=== PATIENT | male | born 1955 | race Caucasian/White ===

== ENCOUNTER 2018-11-23 06:11 | Day surgery (SDC) | payer BC ==
[~2018-11-23] VITALS: Ht 185.4 cm; Wt 106.0 kg
[~2018-11-23 06:11] MED LIST: Aspir 8181 MG PO; Diclofenac Pota50 MG PO; EPIPEN0.3 MG/0.3; IBUP800 PO; LOPROX 0.77% TOP; Olux-E 0.05% F100 GM TOP; TRAM50 PO; TRAZ50 PO; [UNRECOGNIZED DRUG - OTHER] TOP
[2018-11-23] MEDS ORDERED: METF500C PO (07:27)
--- NOTE | 2018-11-23 10:26 | NUR ---
11/23/18 1026 Navi Leos S PATIENT SITTING IN RECLINER CHAIR VISITING WITH AND DAUGHTER. DENIES PAIN, N/V AT THIS TIME.VSS
== END 2018-11-23 11:08 | disposition home or self-care (01) ==
LOC: ORSCSDS 06:11
PROVIDERS: Orthopaedic Surgery
PROC: 0RNK4ZZ Release Left Shoulder Joint, Percutaneous Endoscopic Approach (ICD-10-PCS; principal; 2018-11-23 07:30)
PROC: 0LM24ZZ Reattachment of Left Shoulder Tendon, Percutaneous Endoscopic Approach (ICD-10-PCS; principal; 2018-11-23 07:30)
DX: M75.122 Complete rotator cuff tear or rupture of left shoulder, not specified as traumatic (principal); M75.42 Impingement syndrome of left shoulder; G47.33 Obstructive sleep apnea (adult) (pediatric); Z79.899 Other long term (current) drug therapy; Z88.2 Allergy status to sulfonamides; Z91.030 Bee allergy status; Z87.891 Personal history of nicotine dependence
CPT/HCPCS: 82947; C1713; J0171; J0690; J1100; J1885; J2405; J2795; J3010; J7120

== ENCOUNTER 2019-12-24 11:14 | Emergency (ER) | payer BC ==
[~2019-12-24] VITALS: Ht 185.4 cm; Wt 94.3 kg
[~2019-12-24 11:14] MED LIST changes: +METF500C PO
== END 2019-12-24 12:45 | disposition short-term general hospital (02) ==
LOC: ER 11:14
DX: H53.2 Diplopia (principal); H02.409 Unspecified ptosis of unspecified eyelid; R29.898 Other symptoms and signs involving the musculoskeletal system; Z88.2 Allergy status to sulfonamides; G61.0 Guillain-Barre syndrome
CPT/HCPCS: 99284